=== PATIENT | female | born 1940 | race Caucasian/White ===

== ENCOUNTER 2017-02-09 00:11 | Observation (INO) | payer MEDICARE ==
--- NOTE | 2017-02-09 00:19 | EDM.PDOC ---
ED HPI GENERAL MEDICAL PROBLEM - General Chief Complaint: Behavioral/Psych Stated Complaint: Agitation Time Seen by Provider: 02/09/17 00:12 Source of Information: Reports: Family, RN, RN Notes Reviewed History Limitations: Reports: No Limitations - History of Present Illness INITIAL COMMENTS - FREE TEXT/NARRATIVE: Patient is brought to the emergency room at [facility] for increased agitation and anxiety. The patient's daughter states that the symptoms began around 2 PM this afternoon. The patient's daughter states that this is an abrupt change for this patient. The patient was visited earlier today by [facility]. According to the patient's daughter, the patient will be admitted to hospice tomorrow for a diagnosis of failure to thrive. The daughter did talk to the [facility] nurse earlier this evening who recommended the patient be brought to the emergency room for further evaluation. It is unclear why the patient is having an abrupt change in mentation. The patient does not take any prescription medications. The patient takes a multivitamin daily. The patient's daughter states that her mother has lost a considerable amount of weight over the past few months. The patient did have a CT scan of her abdomen and pelvis earlier today to evaluate her descending aorta per request of her PCP. The family is not sure why the patient is currently having significant agitation. According to the patient's daughter the patient did fall at home 3 times today. Unclear whether or not the patient hit her head. Onset: Today Onset Date: 02/09/17 Onset Time: 14:00 - Related Data Allergies Allergy/AdvReac Type Severity Reaction Status Date / Time No Known Allergies Allergy Verified 02/09/17 00:19 Home Meds: Home Meds . [No Known Home Meds] 02/09/17 [History] Social & Family History - Family History Family Medical History: Noncontributory ED ROS GENERAL - Review of Systems Review Of Systems: ROS reveals no pertinent complaints other than HPI. ED EXAM, BEHAVIORAL HEALTH - Physical Exam Exam: See Below Exam Limited By: Altered Mental Status General Appearance: Alert, Anxious, Thin, Cachetic Eye Exam: Bilateral Eye: Normal Inspection, PERRL Head: Atraumatic, Normocephalic Neck: Supple Respiratory/Chest: No Respiratory Distress, Decreased Breath Sounds Cardiovascular: Regular Rate, Rhythm, No Edema GI/Abdominal: Soft, Non-Tender, Abnormal Bowel Sounds (Hypoactive) Neurological: Disoriented to Person, Disoriented to Place, Disoriented to Time Psychiatric: Restless, Agitated, Disoriented Skin Exam: Warm, Dry, Intact, Normal color, No rash COURSE, BEHAVIORAL HEALTH COMP - Course Vital Signs: Last Vital Signs Temp 36.9 C 02/09/17 00:14 Pulse 104 H 02/09/17 02:20 Resp 18 02/09/17 00:14 BP 114/58 L 02/09/17 01:48 Pulse Ox 100 02/09/17 02:20 Orders, Labs, Meds: Active Orders 24 hr Category Date Time Status LORazepam [Ativan] Med 02/09/17 02:27 Once 1 mg IVPUSH ONETIME ONE LORazepam [Take Home: LORazepam 0.5 MG, 2 Tab Pack] Med 02/09/17 02:27 Once 1 packet PO ONETIME ONE Sodium Chloride 0.9% [Normal Saline] 1,000 ml Med 02/09/17 00:45 Active IV ASDIRECTED Sodium Chloride 0.9% [Saline Flush] Med 02/09/17 00:22 Active 10 ml FLUSH ASDIRECTED PRN Peripheral IV Insertion Adult [OM.PC] Routine Oth 02/09/17 00:22 Ordered Medication Orders Sodium Chloride (Normal Saline) 1,000 mls @ 999 mls/hr IV ASDIRECTED [facility] Last Admin: 02/09/17 00:49 Dose: 999 mls/hr Lorazepam (Ativan) 1 mg IVPUSH ONETIME ONE Stop: 02/09/17 02:28 Lorazepam (Take Home: Lorazepam 0.5 Mg, 2 Tab Pack) 1 packet PO ONETIME ONE Stop: 02/09/17 02:28 Sodium Chloride (Saline Flush) 10 ml FLUSH ASDIRECTED PRN PRN Reason: Keep Vein Open Laboratory Tests 02/09/17 02/09/17 02/09/17 Range/Units 00:32 00:49 00:49 WBC 7.3 (4.0-10.0) x10^3/uL RBC 2.80 L (4.00-5.50) x10^6/uL Hgb 8.8 L (12.0-16.0) g/dL Hct 28.9 L (33.0-47.0) % MCV 103.2 H (78.0-93.0) fL MCH 31.4 (26.0-32.0) pg MCHC 30.4 L (32.0-36.0) g/dL RDW Coeff of Akbar 11.3 (10.0-15.0) % Plt Count 200 (130-400) x10^3/uL Neut % (Auto) 82.1 H (50.0-80.0) % Lymph % (Auto) 9.5 L (25.0-50.0) % [place] % (Auto) 8.0 (2.0-11.0) % Eos % (Auto) 0.1 (0.0-4.0) % Baso % (Auto) 0.3 (0.2-1.2) % POC VBG pH (7.31-7.41) POC VBG pCO2 (41-51) POC VBG pO2 POC VBG HCO3 (23-28) POC VBG Base Excess ((-2) - 3) POC FiO2 Sodium 128 L* (136-145) mmol/L Potassium 4.4 (3.5-5.1) mmol/L Chloride 87 L (98-107) mmol/L Carbon Dioxide 53 H (21-32) mmol/L BUN 18 (7-18) mg/dL Creatinine 0.6 (0.55-1.02) mg/dL Est Cr Clr Drug Dosing TNP Estimated GFR (MDRD) > 60 Glucose 126 H (74-106) mg/dL Lactic Acid (0.4-2.0) mmol/L Calcium 8.8 (8.5-10.1) mg/dL Corrected Calcium 9.52 (8.5-10.1) mg/dL Total Bilirubin 0.6 (0.2-1.0) mg/dL AST 22 (15-37) U/L ALT 23 (14-59) U/L Alkaline Phosphatase 101 (46-116) U/L C-Reactive Protein 1.3 H (<=0.9) mg/dL Total Protein 6.5 (6.4-8.2) g/dL Albumin 3.1 L (3.4-5.0) g/dL Globulin 3.4 Albumin/Globulin Ratio 0.91 Urine Color Yellow (YELLOW) Urine Appearance Slightly cloudy H (CLEAR) Urine pH 6.5 (5.0-8.0) Ur Specific [place] 1.015 Urine Protein 30 H (NEGATIVE) mg/dL Urine Glucose (UA) Negative (NEGATIVE) mg/dL Urine Ketones Negative (NEGATIVE) mg/dL Urine Occult Blood Negative (NEGATIVE) Urine Nitrite Negative (NEGATIVE) Urine Bilirubin Negative (NEGATIVE) Urine Urobilinogen 0.2 (0.2) EU/dL Ur Leukocyte Esterase Negative (NEGATIVE) Urine RBC 0-5 (NOT SEEN) /HPF Urine WBC 0-5 (NOT SEEN) /HPF Ur Squamous Epith Cells Rare (NEGATIVE) /HPF Amorphous Sediment Few Urine Bacteria Few H (NEGATIVE) /HPF Hyaline Casts Occasional H (NEGATIVE) /HPF Granular Casts Occasional H (NEGATIVE) /HPF Urine Mucus Few H (NEGATIVE) /LPF 02/09/17 02/09/17 Range/Units 00:49 01:00 WBC (4.0-10.0) x10^3/uL RBC (4.00-5.50) x10^6/uL Hgb (12.0-16.0) g/dL Hct (33.0-47.0) % MCV (78.0-93.0) fL MCH (26.0-32.0) pg MCHC (32.0-36.0) g/dL RDW Coeff of Akbar (10.0-15.0) % Plt Count (130-400) x10^3/uL Neut % (Auto) (50.0-80.0) % Lymph % (Auto) (25.0-50.0) % [place] % (Auto) (2.0-11.0) % Eos % (Auto) (0.0-4.0) % Baso % (Auto) (0.2-1.2) % POC VBG pH 7.31 (7.31-7.41) POC VBG pCO2 97 H (41-51) POC VBG pO2 391 POC VBG HCO3 49 H (23-28) POC VBG Base Excess 23 H ((-2) - 3) POC FiO2 0.70 Sodium (136-145) mmol/L Potassium (3.5-5.1) mmol/L Chloride (98-107) mmol/L Carbon Dioxide (21-32) mmol/L BUN (7-18) mg/dL Creatinine (0.55-1.02) mg/dL Est Cr Clr Drug Dosing Estimated GFR (MDRD) Glucose (74-106) mg/dL Lactic Acid 1.2 (0.4-2.0) mmol/L Calcium (8.5-10.1) mg/dL Corrected Calcium (8.5-10.1) mg/dL Total Bilirubin (0.2-1.0) mg/dL AST (15-37) U/L ALT (14-59) U/L Alkaline Phosphatase (46-116) U/L C-Reactive Protein (<=0.9) mg/dL Total Protein (6.4-8.2) g/dL Albumin (3.4-5.0) g/dL Globulin Albumin/Globulin Ratio Urine Color (YELLOW) Urine Appearance (CLEAR) Urine pH (5.0-8.0) Ur Specific [place] Urine Protein (NEGATIVE) mg/dL Urine Glucose (UA) (NEGATIVE) mg/dL Urine Ketones (NEGATIVE) mg/dL Urine Occult Blood (NEGATIVE) Urine Nitrite (NEGATIVE) Urine Bilirubin (NEGATIVE) Urine Urobilinogen (0.2) EU/dL Ur Leukocyte Esterase (NEGATIVE) Urine RBC (NOT SEEN) /HPF Urine WBC (NOT SEEN) /HPF Ur Squamous Epith Cells (NEGATIVE) /HPF Amorphous Sediment Urine Bacteria (NEGATIVE) /HPF Hyaline Casts (NEGATIVE) /HPF Granular Casts (NEGATIVE) /HPF Urine Mucus (NEGATIVE) /LPF Medications Generic Name Dose Route Start Last Admin Trade Name Freq PRN Reason Stop Dose Admin Sodium Chloride 1,000 mls @ 999 mls/hr 02/09/17 00:45 02/09/17 00:49 Normal Saline IV 999 mls/hr ASDIRECTED KIERRA Administration Lorazepam 1 mg 02/09/17 02:27 Ativan IVPUSH 02/09/17 02:28 ONETIME ONE Lorazepam 1 packet 02/09/17 02:27 Take Home: Lorazepam 0.5 Mg, 2 Tab Pack PO 02/09/17 02:28 ONETIME ONE Sodium Chloride 10 ml 02/09/17 00:22 Saline Flush FLUSH ASDIRECTED PRN Keep Vein Open Departure - Departure Time of Disposition: 02:30 Disposition: Refer to Observation Condition: fair Clinical Impression: Acute confusion due to medical condition, Acute respiratory acidosis, Agitation , Hyponatremia, Hypercapnia with mixed acid-base disorder - Discharge Information - Problem List & Annotations (1) Acute confusion due to medical condition SNOMED Code(s): 2317742 Code(s): F05 - DELIRIUM DUE TO KNOWN PHYSIOLOGICAL CONDITION Status: Acute Priority: High Current Visit: Yes Onset Date: ~02/08/17 (2) Acute respiratory acidosis SNOMED Code(s): 69662133 Code(s): E87.2 - ACIDOSIS Status: Acute Priority: High Current Visit: Yes Onset Date: ~02/08/17 (3) Agitation SNOMED Code(s): 72544795 Code(s): R45.1 - RESTLESSNESS AND AGITATION Status: Acute Current Visit: Yes (4) Hypercapnia with mixed acid-base disorder SNOMED Code(s): 54640302 Code(s): E87.4 - MIXED DISORDER OF ACID-BASE BALANCE Status: Acute Current Visit: Yes (5) Hyponatremia SNOMED Code(s): 14182008 Code(s): E87.1 - HYPO-OSMOLALITY AND HYPONATREMIA Status: Acute Current Visit: Yes - Problem List Review Problem List Initiated/Reviewed/Updated: Yes - My Orders Last 24 Hours: My Active Orders 02/09/17 00:22 Sodium Chloride 0.9% [Saline Flush] 10 ml FLUSH ASDIRECTED PRN Peripheral IV Insertion Adult [OM.PC] Routine 02/09/17 00:45 Sodium Chloride 0.9% [Normal Saline] 1,000 ml IV ASDIRECTED 02/09/17 02:27 LORazepam [Ativan] 1 mg IVPUSH ONETIME ONE LORazepam [Take Home: LORazepam 0.5 MG, 2 Tab Pack] 1 packet PO ONETIME ONE - Assessment/Plan Admission H&P: Please use this note as an admission H&P Last 24 Hours: My Active Orders 02/09/17 00:22 Sodium Chloride 0.9% [Saline Flush] 10 ml FLUSH ASDIRECTED PRN Peripheral IV Insertion Adult [OM.PC] Routine 02/09/17 00:45 Sodium Chloride 0.9% [Normal Saline] 1,000 ml IV ASDIRECTED 02/09/17 02:27 LORazepam [Ativan] 1 mg IVPUSH ONETIME ONE LORazepam [Take Home: LORazepam 0.5 MG, 2 Tab Pack] 1 packet PO ONETIME ONE Plan: Thoroughly and extensively discussed lab results with the patient's daughter. All questions answered. Given the acute confusion and agitation I did offer admission overnight, which the family accepted.
[2017-02-09] MEDS ORDERED: Sodium Chloride 0.9% 10 ML Syringe FLUSH PRN (00:22)
[2017-02-09] MEDS ORDERED: Sodium Chloride 0.9% 1,000 ML IV SCH ×2 (00:45→03:00)
[2017-02-09 01:20] LABS: CHLORIDE,CL 87 mmol/L (98-107)
[2017-02-09 01:23] LABS: SODIUM,NA 128 mmol/L (136-145)
[2017-02-09] MEDS ORDERED: Take Home: LORazepam 0.5 MG Tab, 2 Tab Pack PO ONE (02:27)
[2017-02-09] MEDS ORDERED: LORazepam 2 MG/ML MDV IVPUSH ONE (02:27)
--- NOTE | 2017-02-09 02:50 | PCM.HP ---
H&P History of Present Illness - General Date of Service: 02/09/17 Admit Problem/Dx: Acute confusion Respiratory Acidosis Hyponatremia Hypercapnea Source of Information: Family, RN, RN Notes Reviewed History Limitations: Reports: Altered Mental Status - History of Present Illness Initial Comments - Free Text/Narative: Patient is brought to the emergency room at [facility] for increased agitation and anxiety. The patient's daughter states that the symptoms began around 2 PM this afternoon. The patient's daughter states that this is an abrupt change for this patient. The patient was visited earlier today by [facility]. According to the patient's daughter, the patient will be admitted to hospice tomorrow for a diagnosis of failure to thrive. The daughter did talk to the [facility] nurse earlier this evening who recommended the patient be brought to the emergency room for further evaluation. It is unclear why the patient is having an abrupt change in mentation. The patient does not take any prescription medications. The patient takes a multivitamin daily. The patient's daughter states that her mother has lost a considerable amount of weight over the past few months. The patient did have a CT scan of her abdomen and pelvis earlier today to evaluate her descending aorta per request of her PCP. The family is not sure why the patient is currently having significant agitation. According to the patient's daughter the patient did fall at home 3 times today. Unclear whether or not the patient hit her head. Admit PCO2 97, Na 128, HCO3 48, pH 7.31, Hgb 8.8 Symptom Onset Date: 02/08/17 Symptom Onset Time: 14:00 - Related Data Allergies/Adverse Reactions: Allergies Allergy/AdvReac Type Severity Reaction Status Date / Time No Known Allergies Allergy Verified 02/09/17 00:19 Home Medications: Home Meds . [No Known Home Meds] 02/09/17 [History] Past Medical History Respiratory History: Reports: COPD Oncologic (Cancer) History: Reports: Other (See Below) Other Oncologic History: skin - Past Surgical History GI Surgical History: Reports: Cholecystectomy Female Surgical History: Reports: Hysterectomy, Oophorectomy Social & Family History - Family History Family Medical History: Noncontributory - Tobacco Use Smoking Status *Q: Former Smoker Tobacco Use Within Last Twelve Months: Cigarettes Used Tobacco, but Quit: Yes Month Tobacco Last Used: ? - Caffeine Use Caffeine Use: Reports: None - Alcohol Use Alcohol Use History: No Alcohol Use in Last Twelve Months: No - Recreational Drug Use Recreational Drug Use: No Drug Use in Last 12 Months: No - Living Situation & Occupation Living situation: Reports: , with Family Occupation: Retired H&P Review of Systems - Review of Systems: Review Of Systems: ROS reveals no pertinent complaints other than HPI. Exam - Exam Exam: See Below - Vital Signs Vital Signs: Last Vital Signs Temp 36.9 C 02/09/17 00:14 Pulse 104 H 02/09/17 02:20 Resp 18 02/09/17 00:14 BP 114/58 L 02/09/17 01:48 Pulse Ox 100 02/09/17 02:20 Weight: 33.747 kg - Exam Quality Assessment: Supplemental Oxygen General: Alert Neck: Supple Lungs: Normal Respiratory Effort, Decreased Breath Sounds Cardiovascular: Regular Rate, Regular Rhythm, Normal S1, Normal S2 Abdomen: Soft, Hypoactive Bowel Sounds Extremities: Cool Peripheral Pulses: 2+: Radial (L), Radial (R) Skin: Warm, Dry, Intact Neuro Extensive - Mental Status: Alert, Disorientation to Place, Disorientation to Time, Inattentive Psychiatric: Anxious, Agitated - Patient Data Result Diagrams: 02/09/17 00:49 02/09/17 00:49 *Q Meaningful Use (ADM) - VTE *Q VTE Criteria *Q: VTE Mechanical Contraindications *Q: At Risk for Falls - VTE Risk Assess *Q Each Risk Factor Represents 3 Points: Age 75 Years or Greater Total Score 3 Point Risk Factors: 3 - Stroke *Q Stroke Criteria *Q: Aspirin Contraindications Stroke *Q: Patient Refusal - AMI *Q AMI Criteria *Q: - Problem List (1) Acute respiratory acidosis SNOMED Code(s): 33439978 ICD Code: E87.2 - ACIDOSIS Status: Acute Priority: High Current Visit: Yes Onset Date: ~02/08/17 (2) Acute confusion due to medical condition SNOMED Code(s): 3144096 ICD Code: F05 - DELIRIUM DUE TO KNOWN PHYSIOLOGICAL CONDITION Status: Acute Priority: High Current Visit: Yes Onset Date: ~02/08/17 (3) Agitation SNOMED Code(s): 47688377 ICD Code: R45.1 - RESTLESSNESS AND AGITATION Status: Acute Current Visit : Yes (4) Hypercapnia with mixed acid-base disorder SNOMED Code(s): 38605036 ICD Code: E87.4 - MIXED DISORDER OF ACID-BASE BALANCE Status: Acute Current Visit: Yes (5) Hyponatremia SNOMED Code(s): 54904163 ICD Code: E87.1 - HYPO-OSMOLALITY AND HYPONATREMIA Status: Acute Current Visit: Yes Problem List Initiated/Reviewed/Updated: Yes Orders Last 24hrs: Medication Orders Sodium Chloride (Normal Saline) 1,000 mls @ 999 mls/hr IV ASDIRECTED KIERRA Last Admin: 02/09/17 00:49 Dose: 999 mls/hr Sodium Chloride (Saline Flush) 10 ml FLUSH ASDIRECTED PRN PRN Reason: Keep Vein Open Assessment/Plan Comment:: 76-year-old patient with a past medical history of COPD and will be admitted to our observation unit for respiratory acidosis, acute confusion, agitation, hyponatremia, hypercapnia. The patient will be placed on normal saline IV fluids for sodium resuscitation. Order was placed for when necessary Ativan. Patient will be on a regular diet and activity as tolerated. The patient is a no code per family request. The patient will not be transferred to a higher level of care should the need arise. I do anticipate the patient to be on observation less than 48 hours. The patient should be seen by hospice tomorrow. We'll consult case management for discharge planning.
[2017-02-09] MEDS ORDERED: LORazepam 2 MG/ML MDV IVPUSH PRN ×2 (02:59→09:32)
--- NOTE | 2017-02-09 07:42 | PCM.PN ---
- General Info Date of Service: 02/09/17 Admission Dx/Problem (Free Text): Acute confusion Respiratory Acidosis Hyponatremia Hypercapnea Functional Status: Reports: other (patient sleeping in room. unable to obtain ROS due to heavy sedation) - Patient Data Vitals - most recent: Last Vital Signs Temp 36.8 C 02/09/17 05:54 Pulse 95 02/09/17 05:54 Resp 21 H 02/09/17 02:57 BP 106/52 L 02/09/17 05:54 Pulse Ox 100 02/09/17 05:54 Weight - most recent: 34.927 kg I&O - last 24 hours: Intake & Output 02/08/17 02/09/17 02/09/17 22:59 06:59 14:59 Intake Total 0 Balance 0 Med Orders - Current: Current Medications Sodium Chloride (Normal Saline) 1,000 mls @ 999 mls/hr IV ASDIRECTED [facility] Last Admin: 02/09/17 00:49 Dose: 999 mls/hr Sodium Chloride (Normal Saline) 1,000 mls @ 100 mls/hr IV ASDIRECTED [facility] Last Admin: 02/09/17 03:37 Dose: 100 mls/hr Lorazepam (Ativan) 1 mg IVPUSH Q4H PRN PRN Reason: Agitation Sodium Chloride (Saline Flush) 10 ml FLUSH ASDIRECTED PRN PRN Reason: Keep Vein Open Discontinued Medications Lorazepam (Ativan) 1 mg IVPUSH ONETIME ONE Stop: 02/09/17 02:28 Last Admin: 02/09/17 02:31 Dose: 1 mg Lorazepam (Take Home: Lorazepam 0.5 Mg, 2 Tab Pack) 1 packet PO ONETIME ONE Stop: 02/09/17 02:28 Last Admin: 02/09/17 04:02 Dose: Not Given - Exam Quality Assessment: supplemental oxygen General: lethargic, other (due to increased anxiety, patient given ativan 1 mg at 0200. She is heavily sleeping, no response to direction) HEENT: Pupils equal, Pupils reactive Neck: supple Lungs: Clear to auscultation, Normal respiratory effort Cardiovascular: Regular Rate, Regular Rhythm Abdomen: bowel sounds present Extremities: no edema Skin: warm, dry, intact Neurological: no new focal deficit Psy/Mental Status: alert, other (sedated) - Problem List & Annotations (1) Failure to thrive SNOMED Code(s): 93659363 Code(s): ETL2039 - Status: Acute Priority: Low Current Visit: Yes (2) Hypoxic episode SNOMED Code(s): 046594357, 499707334 Code(s): R09.02 - HYPOXEMIA Status: Acute Priority: Low Current Visit: Yes - Problem List Review Problem List Initiated/Reviewed/Updated: Yes - Assessment Assessment:: hypoxic event failure to thrive hyponatremia hypercapnea - Plan Plan:: 76-year-old patient with a past medical history of COPD and will be admitted to our observation unit for respiratory acidosis, acute confusion, agitation, hyponatremia, hypercapnia. The patient will be placed on normal saline IV fluids for sodium resuscitation. Order was placed for when necessary Ativan. Patient will be on a regular diet and activity as tolerated. The patient is a no code per family request. The patient will not be transferred to a higher level of care should the need arise. I do anticipate the patient to be on observation less than 48 hours. The patient should be seen by hospice tomorrow. We'll consult case management for discharge planning.
[2017-02-09] MEDS ORDERED: LORazepam 2 MG/ML MDV IM PRN (09:24)
--- NOTE | 2017-02-09 11:36 | PN ---
Progress Note for MORRIS BAILEY Date: 02/09/2017 Room #: VM.215 SUBJECTIVE: This is a 76-year-old, admitted during the night. She became more confused and combative with family, had significant deterioration just from 2 p.m. to 8 p.m. She was falling in the home 3 times yesterday. She has severe COPD with weight loss. O2 saturations will be around 80% on room air. She had a CO2 elevated up to 97 on ABGs, she otherwise had a low sodium 128. She has not been eating and drinking well. Hemoglobin had also dropped to 8.8, but there have been no signs of bleeding. She had a CT earlier this week for an abnormality in her pelvis, but it turned out to be probably just Paget's disease. Family does not feel she is in any pain currently. OBJECTIVE: Vital Signs: She is unresponsive. Her weight is 34.9 kg, temperature is 98.2, pulse 95, blood pressure 106/52, respiratory rate is not recorded, and O2 is 99% on 10 L. General: She was in no acute distress. She is unresponsive. HEENT: Her pupils are equal and round. Heart: Regular rate and rhythm. Lungs: Sounds are decreased due to poor respiratory effort, but no crackles or wheezes appreciated. Abdomen: Positive bowel sounds. It is soft. Did appear to be either some tenderness or just twitching when I palpated it, but she did not grimace in severe pain. Extremities: Warm and dry. No edema. No mottling. She has good neck pain. She does not appear to be overly dehydrated currently and she did receive IV fluids. LABORATORY DATA: Lab work showed a normal white count, again hemoglobin 8.8. Sodium 128, creatinine 0.6, bicarb 53. ASSESSMENT AND PLAN: 1. Discussed with family, the patient is probably end of life care here due to her severe chronic obstructive pulmonary disease and CO2 retention. They strongly desire to take her home today with hospice. 2. Hyponatremia, probably due to dehydration and poor oral intake. 3. Acute on chronic anemia with unknown source of bleeding; however, family is not interested in pursuing any further workup. 4. Failure to thrive. 5. Severe chronic obstructive pulmonary disease, on chronic hypoxia, resulting in agitation and confusion. 6. Delirium, responded well to IV Ativan. Discussed with the family going home with hospice 0.5 of subcu morphine every 2 hours as needed and sublingual in case the subcu line comes out. Discussed with hospice, we will try to make arrangements for this today. Originally, they set tomorrow but her family was hoping it would be today as their mother never wanted to be in the hospital and hospice and home health have already been out to meet with them. We will discharge later today with hospice, if able. MKA: 02/09/2017 09:42:27 MODL: 02/09/2017 11:27:33 /[id number]
--- NOTE | 2017-02-09 16:58 | PCM.DCSUM1 ---
Discharge Summary - Hospital Course Free Text/Narrative:: Patient admitted due to being combative at home and she was weak and falling. She has chronic respiratory failure from COPD and was found to be hypercapnic. Family desired to take the patient home with hospice. IV ativan was given in the ER. Please see the daily progress note for further details. - Discharge Data Discharge Date: 02/09/17 Discharge Disposition: DC/Tfer to Hospice - Home 50 Condition: Good - Patient Summary/Data Consults: Consultations 02/09/17 02:57 Consult to [facility] [CONS] Routine - Patient Instructions Diet: Usual Diet as Tolerated Driving: Do Not Drive Notify Provider of: Fever, Increased Pain, Swelling and Redness, Nausea and/or Vomiting - Discharge Plan Home Medications: Home Meds . [No Known Home Meds] 02/09/17 [History] - Discharge Summary/Plan Comment DC Time >30 min.: No Discharge Summary/Plan Comment: I will monitor her care with hospice she does have an appt in the clinic next week which we can cancel if she continues to be sedated. - Patient Data Vitals - Most Recent: Last Vital Signs Temp 99 F 02/09/17 10:00 Pulse 105 H 02/09/17 10:00 Resp 21 H 02/09/17 02:57 BP 110/59 L 02/09/17 10:00 Pulse Ox 100 02/09/17 11:00 Weight - Most Recent: 34.927 kg I&O - Last 24 hours: Intake & Output 02/09/17 02/09/17 02/09/17 06:59 14:59 22:59 Intake Total 0 0 Balance 0 0 Med Orders - Current: Current Medications Discontinued Medications Sodium Chloride (Normal Saline) 1,000 mls @ 999 mls/hr IV ASDIRECTED KIERRA Last Admin: 02/09/17 00:49 Dose: 999 mls/hr Sodium Chloride (Normal Saline) 1,000 mls @ 100 mls/hr IV ASDIRECTED KIERRA Last Admin: 02/09/17 03:37 Dose: 100 mls/hr Lorazepam (Ativan) 1 mg IVPUSH ONETIME ONE Stop: 02/09/17 02:28 Last Admin: 02/09/17 02:31 Dose: 1 mg Lorazepam (Take Home: Lorazepam 0.5 Mg, 2 Tab Pack) 1 packet PO ONETIME ONE Stop: 02/09/17 02:28 Last Admin: 02/09/17 04:02 Dose: Not Given Lorazepam (Ativan) 1 mg IVPUSH Q4H PRN PRN Reason: Agitation Lorazepam (Ativan) 0.5 mg IM Q4H PRN PRN Reason: Agitation Lorazepam (Ativan) 0.5 mg IVPUSH Q4H PRN PRN Reason: Agitation Sodium Chloride (Saline Flush) 10 ml FLUSH ASDIRECTED PRN PRN Reason: Keep Vein Open *Q Meaningful Use (DIS) - VTE *Q VTE Criteria *Q: VTE Mechanical Contraindications *Q: At Risk for Falls - Stroke *Q Stroke Criteria *Q: Aspirin Contraindications Stroke *Q: Patient Refusal - AMI *Q AMI Criteria *Q:
== END 2017-02-09 12:10 | disposition hospice, home (50) ==
LOC: VM.ED 00:11 → VM.MS 02:47
PROVIDERS: ADMIT Nurse Practitioner Family; ATTEND Nurse Practitioner Family
DX: E87.1 Hypo-osmolality and hyponatremia (principal); E87.2 Acidosis; R62.7 Adult failure to thrive; Z87.891 Personal history of nicotine dependence; J44.9 Chronic obstructive pulmonary disease, unspecified; R45.1 Restlessness and agitation; J96.12 Chronic respiratory failure with hypercapnia; Z91.81 History of falling
CPT/HCPCS: 36415; 36600; 80053; 81001; 82803; 83605; 85025; 86140; 94760; 96361; 96374; 99285; G0378; J2060; J7030; 99219